=== PATIENT | female | born 1950 | race Caucasian/White ===

== ENCOUNTER 2016-07-30 06:54 | Outpatient (CLI) | payer MEDICARE ==
[~2016-07-30] VITALS: Ht 167.6 cm; Wt 109.1 kg
--- NOTE | ~2016-07-30 | HEMODYNAMI ---
PATIENT:DAMIAN MAGAÑA MEDICAL RECORD: [id number] : 50 LOCATION:[facility] ADMISSION DATE: 07/30/16 Generatedon:07/30/201610:31 Patient name: DAMIAN MAGAÑA Patient #: [id number] SSN: : 1950 Date of study: 07/30/2016 Page: Of Hemodynamic Procedure Report Patient Data Patient Demographics Procedure consent was obtained First Name: DAMIAN Gender: Female Last Name: ARCHANA : 1950 Patient #: [id number] Age: 65 year(s) Race: Unknown Additional ID: [id number] Contact details [address]: [address] [place] [address] State: [place] City: [place] Zip code: [address] Past Medical History Allergies Allergen Reaction Date Comments Reported Other allergy 07/30/2016 codeine Admission Admission Data Admission Date: 07/30/2016 Admission Time: 6:54 Admit Source: Other Lab Results Lab Result Date: 07/30/2016 Lab Result Time: 0:00 Biochemistry Name Units Result Min Max BUN mg/dl 11 --(-*--)-- 7 18 Creatinine mg/dl 0.8 --(-*--)-- 0.6 1.3 CBC Name Units Result Min Max Hematocrit % 46.1 --(-*--)-- 42 54 Hemoglobin g/dl 15.3 --(-*--)-- 13.5 17.5 Procedure Procedure Types Cath Procedure Diagnostic Procedure C [facility] w/Coronaries PCI Procedure Coronary Stent Initial Miscellaneous Procedures Moderate Sedation up to 45 minutes Peripheral Cath Diagnostic Procedure Cath Peripheral Ffgfy-Tkqriam-Bsm-Off Procedure Description Procedure Date Procedure Date: 07/30/2016 Procedure Start Time: 9:57 Procedure End Time: 10:28 Procedure Staff Name Function Juan Dutta MD Performing Physician Gilberto Yost RN Nurse Adilson Jenkins RT Scrub Mounikadalia Lange RT Monitor Procedure Data Cath Procedure Fluoroscopy Diagnostic fluoroscopy Total fluoroscopy Time: 8.4 time: 8.4 min min Diagnostic fluoroscopy Total fluoroscopy dose: dose: 1409 mGy 1409 mGy Contrast Material Contrast Material Type Amount (ml) Isovue 300 205 Entry Location Entry Primary Successful Side Size Upsize Upsize Entry Closure Succes sful Closure Location (Fr) 1 (Fr) 2 (Fr) Remarks Device Remarks Femoral Right 5 Fr 6 Fr Exoseal artery Short Estimated blood loss: 10 ml Diagnostic catheters Device Type Used For End Catheter Placement Cordis 5Fr JL 4.0 Procedure Catheter (MP) Cordis 5Fr 3DRC Catheter Procedure (MP) Cordis 5Fr Pigtail Procedure Catheter (MP) Procedure Complications No complications Procedure Medications Medication Administration Route Dosage Oxygen NC 2 l/min Heparin Flush Bag added to field 2 bags (1000units/500ml NS) 0.9% NaCl I.V. 100 ml/hr Fentanyl I.V. 50 mcg Versed I.V. 1 mg Fentanyl I.V. 50 mcg Versed I.V. 1 mg Fentanyl I.V. 50 mcg Versed I.V. 1 mg Fentanyl I.V. 50 mcg Versed I.V. 1 mg Heparin Bolus I.V. 5000 units Integrilin (Bolus I.V. 9.5 ml 2mg/ml) Integrilin (Bolus wasted 0.5 ml 2mg/ml) Plavix P.O. 600 mg Hemodynamics Rest HGB: 15.3 (g/dl) Heart Rate: 73 (bpm) Pressure Samples Time Site Value (mmHg) Purpose Heart Use Rate(bpm) 10:02 LV 129/1,23 Snapshot 76 10:02 AO 106/59(81) Pullback 71 10:02 LV 113/20,41 Pullback 71 Gradients Valve Time Site 1 Site 2 Mean SEP/DFP Peak To Heart Use (mmHg) (sec/min) Peak Rate (mmHg) (bpm) Aortic 10:02 LV AO 10 19 7 71 113/20,41 106/59(81) Calculations Valve P-P Mean Valve Index Valve Source Name Gradient Area Flow (cm2) Aortic 7 10 7 10 Snapshots Pre Cath Intra NCS Post Cath Vital Signs Time Heart Resp SPO2 NIBP (mmHg) Rhythm Pain Sedation Rate (ipm) (%) Status Level (bpm) 9:43:30 80 20 99 141/84(123) NSR 0 (11) 10(A) , No pain 9:47:42 76 18 100 133/79(115) NSR 0 (11) 10(A) , No pain 9:52:02 75 18 98 112/63(90) NSR 0 (11) 10(A) , No pain 9:56:12 68 18 98 106/59(87) NSR 0 (11) 10(A) , No pain 10:01:01 77 17 99 126/74(106) NSR 0 (11) 10(A) , No pain 10:05:11 79 17 93 106/69(86) NSR 0 (11) 9(A) , No pain 10:09:20 72 18 95 84/49(79) NSR 0 (11) 9(A) , No pain 10:13:26 72 16 96 78/50(70) NSR 0 (11) 9(A) , No pain 10:17:24 84 17 98 92/62(76) NSR 0 (11) 9(A) , No pain 10:21:25 82 17 98 110/67(94) NSR 0 (11) 9(A) , No pain 10:25:33 86 19 99 112/74(91) NSR 0 (11) 10(A) , No pain Medications Time Medication Route Dose Verified Delivered Reason Notes Effectiveness by by 9:45:15 Oxygen NC 2 Gilberto Gilberto Per physician l/min Priyank Yost RN RN 9:45:22 Heparin Flush added 2 Gilberto Gilberto used for Bag to bags Priyank Yost RN procedure (1000units/500ml field RN NS) 9:45:31 0.9% NaCl I.V. 100 Gilberto Gilberto Per physician ml/hr Priyank Yost RN RN 9:57:30 Fentanyl I.V. 50 Gilberto Gilberto for sedation mcg Priyank Yost RN RN 9:57:36 Versed I.V. 1 mg Gilberto Gilberto for sedation Priyank Yost RN RN 9:59:31 Fentanyl I.V. 50 Gilberto Gilberto for sedation mcg Priyank Yost RN RN 9:59:36 Versed I.V. 1 mg Gilberto Gilberto for sedation Priyank Yost RN RN 10:02:29 Fentanyl I.V. 50 Gilberto Gilberto for sedation mcg Priyank Yost RN RN 10:02:34 Versed I.V. 1 mg Gilberto Gilberto for sedation Priyank Yost RN RN 10:06:31 Fentanyl I.V. 50 Gilberto Macias for sedation mcg Priyank Yost RN RN 10:06:35 Versed I.V. 1 mg Gilberto Macias for sedation Priyank Yost RN RN 10:06:47 Heparin Bolus I.V. 5000 Gilberto Macias for units Priyank Yost RN anticoagulation RN 10:07:03 Integrilin I.V. 9.5 Gilberto Macias for (Bolus 2mg/ml) ml Priyank Yost RN antiplatelet RN therapy 10:07:11 Integrilin wasted 0.5 Gilberto Macias for (Bolus 2mg/ml) ml Priyank Yost RN antiplatelet RN therapy 10:29:05 Plavix P.O. 600 Gilberto Macias for mg Priyank Yost RN antiplatelet RN therapy Procedure Log Time Note 9:01:11 Informed consent obtained and on chart 9:01:32 Admit Source: Other 9:01:34 Diagnostic Cath status Elective 9:21:15 Time tracking: Regular hours 9:21:19 Plan of Care:Hemodynamics will remain stable., Cardiac rhythm will remain stable., Comfort level will be maintained., Respiratory function will remain adequate., Patient/ family verbilizes understanding of procedure., Procedure tolerated without complication., Recovers from procedure without complications.. 9:21:24 Mounika Counts RT(R) sent for patient. Start room use. 9:36:13 Patient received from Pre/Post Procedure Room to CCL 2 Alert and oriented. Tansferred to table in Supine position. 9:36:14 Warm blankets applied, and kellie hugger turned on for patient comfort. 9:36:14 Correct patient and procedure confirmed by team. 9:36:15 ECG and BP/O2 sat monitors applied to patient. 9:42:23 Vital chart was started 9:45:15 Oxygen 2 l/min NC was administered by Gilberto Yost RN; Per physician; 9:45:22 Heparin Flush Bag (1000units/500ml NS) 2 bags added to field was administered by Gilberto Yost RN; used for procedure; 9:45:31 0.9% NaCl 100 ml/hr I.V. was administered by Gilberto Yost RN; Per physician; 9:49:42 Rhythm: sinus rhythm 9:49:59 Full Disclosure recording started 9:50:12 Baseline sample Acquired. 9:50:22 H&P Date Dictated: 07/26/2016 Within 30 days and on chart., H&P Addendum completed by physician on day of procedure. (MUST COMPLETE FOR ALL OUTPATIENTS). 9:50:23 Pre-procedure instructions explained to patient. 9:50:23 Pre-op teaching completed and patient verbalized understanding. 9:50:24 Family in waiting room. 9:50:26 Patient NPO since Midnight. 9:50:35 Patient allergic to Other allergycodeine 9:50:38 Is the patient allergic to Iodine/contrast media? No. 9:50:52 Is patient on blood thinner?No 9:50:53 Patient diabetic? Yes. 9:50:55 If diabetic: On Metformin? Yes 9:51:06 If on Metformin: Last Dose? 07/25/2016 9:51:10 Previous problem with sedation/anesthesia? No ? 9:51:12 Snore? Yes 9:51:13 Sleep apnea? No 9:51:14 Deviated septum? No 9:51:15 Opens mouth fully? Yes 9:51:15 Sticks out tongue? Yes 9:51:17 Airway obstruction? No ? 9:51:18 Dentures? No ? 9:51:34 Patient pain scale 0/10 ?. 9:51:37 IV patent on arrival in right hand with 0.9% NaCl at [facility]. 9:52:13 Zero performed for pressure channel P1 9:52:22 Zero performed for pressure channel P1 9:53:14 Lab Result : BUN 11 mg/dl 9:53:14 Lab Result : Creatinine 0.8 mg/dl 9:53:15 Lab Result : Hemoglobin 15.3 g/dl 9:53:15 Lab Result : Hematocrit 46.1 % 9:53:16 Lab results completed and on chart. 9:53:19 Bilateral groins area was prepped with chlora-prep and draped in sterile fashion 9:53:20 Alarms reviewed by R. N. 9:53:20 Sharps counted by scrub and verified by R.N. 9:53:22 Use device set Femoral Dx 9:53:23 Tegaderm 4 x 4 opened to sterile field. 9:53:24 Acist Hand Control opened to sterile field. 9:53:24 Acist Manifold opened to sterile field. 9:53:26 Acist Syringe opened to sterile field. 9:53:26 Bag Decanter opened to sterile field. 9:53:27 Medline Cath Pack opened to sterile field. 9:53:27 Terumo 5Fr Thor Sheath opened to sterile field. 9:53:28 St Robert 260cm J .035 wire opened to sterile field. 9:53:28 Diagnostic Infinity 5Fr Multipack catheter opened to sterile field. 9:53:35 Physician arrived 9:53:36 --------ALL STOP TIME OUT------ 9:53:36 Final Timeout: patient, procedure, and site verified with staff and physician. All members of the team are in agreement. 9:53:38 Bilateral groins site verified by team. 9:53:40 Physical assessment completed. ASA score P 2 - A patient with mild systemic disease as per Juan Dutta MD. 9:53:42 Sedation plan: IV Moderate Sedation Versed, Fentanyl 9:57:27 Procedure started. 9:57:30 Fentanyl 50 mcg I.V. was administered by Gilberto Yost RN; for sedation; 9:57:30 Local anesthetic to right femoral artery with Lidocaine 2% by Juan Dutta MD.INITIAL ACCESS ONLY 9:57:36 Versed 1 mg I.V. was administered by Gilberto Yost RN; for sedation; 9:57:39 A 5 Fr sheath was inserted into the Right Femoral artery 9:58:30 A Cordis 5Fr JL 4.0 Catheter (MP) was advanced over the wire and used for Procedure. 9:59:03 LCA angiography performed. 9:59:31 Fentanyl 50 mcg I.V. was administered by Gilberto Yost RN; for sedation; 9:59:36 Versed 1 mg I.V. was administered by Gilberto Yost RN; for sedation; 9:59:44 Catheter exchanged over wire. 10:00:21 A Cordis 5Fr 3DRC Catheter (MP) was advanced over the wire and used for Procedure. 10:00:47 RCA angiography performed. 10:00:59 Terumo 6Fr Thor Sheath opened to sterile field. 10:00:59 Cordis 6FR XBLAD 3.5 guide catheter opened to sterile field. 10:01:00 Fritz Whisper J 300cm 0.014 guide wire opened to sterile field. 10:01:05 Catheter exchanged over wire. 10:01:10 A Cordis 5Fr Pigtail Catheter (MP) was advanced over the wire and used for Procedure. 10:02:21 EF : 55 % 10::24 Injector settings: Ml/sec: 10, Volume: 20, 10:02:29 Fentanyl 50 mcg I.V. was administered by Gilberto Yost RN; for sedation; 10:02:34 Versed 1 mg I.V. was administered by Gilberto Yost RN; for sedation; 10:02:45 Procedure type changed to Cath procedure, Diagnostic procedure, LHC, LHC w/Coronaries, PCI procedure, Coronary Stent Initial, Miscellaneous Procedures, Moderate Sedation up to 45 minutes, Peripheral Cath Diagnostic Procedure, Cath Peripheral, Cvtzg-Ovenngg-Ejj-Off 10:02:53 Abdominal angiogram w/ runoff was performed. 10:03:43 Left leg runoff performed. 10:04:16 Right leg runoff performed. 10:05:30 Catheter removed. 10:05:39 Sheath upsized to a 6 Fr Short. 10:06:31 Fentanyl 50 mcg I.V. was administered by Gilberto Yost RN; for sedation; 10:06:35 Versed 1 mg I.V. was administered by Gilberto Yost RN; for sedation; 10:06:47 Heparin Bolus 5000 units I.V. was administered by Gilberto Yost RN; for anticoagulation; 10:07:03 Integrilin (Bolus 2mg/ml) 9.5 ml I.V. was administered by Gilberto Yost RN; for antiplatelet therapy; 10:07:11 Integrilin (Bolus 2mg/ml) 0.5 ml wasted was administered by Gilberto Yost RN; for antiplatelet therapy; 10:07:17 6 Fr xblad 3.5 guide catheter was inserted over the wire 10:09:07 whisper wire advanced. 10:11:35 Wire removed. 10:11:40 Guide Catheter removed. unable to get back-up support 10:12:39 Medtronic Launcher 5Fr EBU 3.5 guide catheter opened to sterile field. 10:12:48 6 Fr EBU 3.5 guide catheter was inserted over the wire 10:13:12 WHISPER wire advanced. 10:14:08 Wire advanced across lesion. 10:15:10 Inflation number: 1 A H[employer] [place] 3.0 X 15 balloon was prepped and advanced across the Mid LAD, then inflated to 10 SHAHBAZ for 0:15 (min:sec). 10:15:43 Balloon removed over the wire. 10:18:12 Inflation Number: 2 A Medtronic Resolute 3.0 X 26 stent was prepped and advanced across the Mid LAD. The stent was deployed at 14 SHAHBAZ for 0:26 (min:sec). 10:20:44 Stent catheter was removed intact over wire. 10:22:21 Inflation Number: 1 A Medtronic Resolute 3.5 X 12 stent was prepped and advanced across the Prox LAD. The stent was deployed at 14 SHAHBAZ for 0:10 (min:sec). 10:24:21 Stent catheter was removed intact over wire. 10:24:22 Wire removed. 10:24:22 Guide catheter removed. 10:24:37 Cordis 6Fr Exoseal opened to sterile field. 10:24:54 Sheath removed intact; hemostasis achieved with Exoseal to the Right Femoral artery. 10:24:58 Procedure ended.(Physican Out) 10:25:03 Fluoroscopy time 08.40 minutes. 10:25:09 Fluoroscopy dose: 1409 mGy 10:25:09 Flurop Dose total: 1409 10:25:15 Contrast amount:Isovue 300 205ml. 10:25:16 Sharps counted by scrub and verified by R.N. 10:25:17 Insertion/operative site no bleeding no hematoma. 10:25:20 Post-op/insertion site Right Femoral artery dressed using a 4 x 4 and Tegaderm. 10:25:23 Post right femoral artery:stable, soft, clean and dry 10:25:24 Post Procedure Pulses reassessed and unchanged 10:25:26 Post-procedure physical assessment completed. ASA score P 2 - A patient with mild systemic disease as per Juan Dutta MD. 10:25:29 Post procedure rhythm: unchanged. 10:25:31 Estimated blood loss: 10 ml 10:25:33 Post procedure instruction explained to patient.Patient verbalizes understanding. 10:25:33 Patient needs reinforcement of post procedure teaching. 10:27:16 Merit BasixCompak Inflation Kit opened to sterile field. 10:27:45 Procedure and supply charges have been captured, reviewed, submitted and are correct. 10:27:47 Procedure Complication : No complications 10:27:49 Vital chart was stopped 10:27:49 See physician's report for complete and final results. 10:27:50 Report given to Pre/Post Procedure Room. 10:28:01 Patient transfered to Pre/Post Procedure Room with Stretcher. 10:28:03 Procedure ended. 10:28:03 Full Disclosure recording stopped 10:28:07 End room use (Document Last) 10:29:05 Plavix 600 mg P.O. was administered by Gilberto Yost RN; for antiplatelet therapy; Intervention Summary Intervention Notes Time ActionType Lesion and Equipment Action# Pressure Duration Attributes Used 10:15:10 Inflate Mid LAD Horton 1 10 00:15 balloon Sci [place] 3.0 X 15 balloon 10:18:12 Place stent Mid LAD Medtronic 2 14 00:26 Resolute 3.0 X 26 stent 10:22:21 Place stent Prox LAD Medtronic 1 14 00:10 Resolute 3.5 X 12 stent Device Usage Item Name Manufacture Quantity Catalog Number Hospital Part Current Mini [facility] Lot# / Charge Number Stock Stock Serial# Code Tegade 4 3M 1 [id number] 519970 408102 5 x 4 Acist Hand Acist 1 41293 571729 466083 891827 5 Control [employer] Systems Inc Acist Acist 1 60801 959335 512016 403421 5 Manifold Medical Systems Inc Acist Acist 1 09085 969027 587956 392142 20 Syringe Medical Systems Inc Bag Microtek 1 2002S 892291 87516 116614 5 EGG [employer] Inc. Medline Cardinal 1 [id number] 905934 93586 503703 5 Cath Pack Health Terumo 5Fr Terumo 1 [id number] 156503 133170 870943 [address] Robert 1 052870 011686 488513 468244 30 260cm J .035 wire Diagnostic Cardinal 1 HT4131 899028 30416 323153 30 Infinity Health 5Fr Multipack catheter Cordis 5Fr Cardinal 1 080791 5 JL 4.0 Health Catheter (MP) Cordis 5Fr Cardinal 1 906871 5 3DRC Health Catheter (MP) Terumo 6Fr Terumo 1 [id number] 279077 856796 246510 40 Thor Sheath Cordis 6FR Cardinal 1 [id number] 839607 708805 734663 10 XBLAD 3.5 Health guide catheter Fritz Fritz 1 [id number] 349251 094745 679768 5 Whisper J Vascular 300cm 0.014 guide wire Cordis 5Fr Cardinal 1 791733 5 Pigtail Health Catheter (MP) Medtronic Medtronic 1 [id number] 725843 190223 316354 1 Launcher 5Fr EBU 3.5 guide catheter Horton Sci Horton 1 [id number] 369553 273343 797964 1 [id number] [employer] 3.0 X 15 balloon Medtronic Medtronic 1 [id number] 418726 158054 3 [id number] Resolute 3.0 X 26 stent Medtronic Medtronic 1 [id number] 374334 978026 1 [id number] Resolute 3.5 X 12 stent Cordis 6Fr Cardinal 1 [id number] 261189 220746 484737 10 [facility] 1 [id number] 796470 924710 041643 15 [facility] Medical Inflation Kit Signature Audit Moffit Stage Time Signature Unsigned Intra-Procedure 07/30/2016 Adilson Jenkins 10:31:04 AM RT(R) Signatures Monitor : Mounika Signature : Counts RT Date : Time : [place] [id number] [facility] [place] [address]
[2016-07-30] MEDS ORDERED: LOSARTAN POTASS25 MG PO (07:59)
[2016-07-30] MEDS ORDERED: GLUCOPHAGE1000 MG PO (07:59)
[2016-07-30] MEDS ORDERED: ZOCOR20 MG PO (08:00)
[2016-07-30] MEDS ORDERED: MELOXICAM TAB 15M PO (08:01)
[2016-07-30] MEDS ORDERED: GLYBURIDE2.5 MG PO (08:02)
[2016-07-30 08:08] LABS: BASOPHILS 0.3 % (0-2); EOSINOPHILS 1.7 % (0-7); HEMATOCRIT 46.1 % (36.0-48.0); HEMOGLOBIN 15.3 g/dL (12-16); IMMATURE GRANULOCYTES 0.2 % (0-5); LYMPHOCYTES 31.1 % (15-50); MCH 31.6 pg (26.0-34.0); MCHC 33.2 g/dL (31.0-37.0); MCV 95.2 fL (80.0-100.0); MEAN PLATELET VOLUME 10.1 fL (7.4-10.4); MONOCYTES 7.1 % (2-11); NEUTROPHILS 59.6 % (40-80); PLATELET COUNT 212 10x3/uL (130-400); RBC 4.84 10x6/uL (4.00-5.40); WBC 9.1 10x3/uL (4.8-10.8)
[2016-07-30 08:10] VITALS: BP 148/69; Ht 167.6 cm; Wt 109.1 kg
[2016-07-30 08:21] LABS: CALC OSMOLALITY 281 mosm/kg (275-300); CALCIUM 8.9 mg/dL (8.5-10.1); CARBON DIOXIDE 22.2 mmol/L (21.0-32.0); CHLORIDE - SERUM 106 mmol/L (98-107); CREATININE - SERUM 0.8 mg/dL (0.6-1.3); GLUCOSE 173 mg/dL (74-106); SODIUM 140 mmol/L (136-145); UREA NITROGEN 11 mg/dL (7-18); eGFR NON AFRICAN AMERICAN 76 mL/min (90-120)
--- NOTE | 2016-07-30 10:47 | NUR ---
NSR RATE 78 WITH CHEST PAIN DENIED BP 139/73 NO DISTRESS NOTED. 6 FR EXOSEAL R/GROIN CDI NO BLEEDING NO HEMATOMA NOTED. INSTRUCTED PATIENT TO KEEP HEAD FLAT ON PILLOW WITH RLE STRAIGHT. FAMILY AT SIDE
[2016-07-30] MEDS ORDERED: PLAVIX75 MG PO (10:52)
[2016-07-30] MEDS ORDERED: BAYER CHEWABLE81 MG PO (10:53)
--- NOTE | 2016-07-30 11:03 | NUR ---
1100 SANDWICH AND PO FLUIDS SERVED. DRESSING TO RIGHT GROIN IS CDI, NO BLEEDING OR HEMATOMA NOTED. PEDAL PULSES PALPABLE. MONITOR WITH NSR, RATE 79. PT DENIES CHEST PAIN. FAMILY AT BEDSIDE, CALL LIGHT IN REACH.
--- NOTE | 2016-07-30 11:52 | NUR ---
1145 PT DENIES ANY C/O. DRESSING TO RIGHT GROIN IS CDI, NO BLEEDING OR HEMATOMA NOTED. PEDAL PULSES PALPABLE. VSS, SINUS RHYTHM, RATE 80. CONTINUE TO MONITOR.
--- NOTE | 2016-07-30 12:27 | NUR ---
1215 PT DENIES ANY C/O. DRESSING TO RIGHT GROIN IS CDI, NO BLEEDING OR HEMATOMA NOTED. PEDAL PULSES PALPABLE. CALL LIGHT IN REACH.
--- NOTE | 2016-07-30 12:58 | NUR ---
1245 PT DENIES ANY C/O. DRESSING TO RIGHT GROIN IS CDI, AREA IS SOFT AND NONTENDER. PEDAL PULSES PALPABLE. VSS, SINUS RHYTHM, RATE 80.
--- NOTE | 2016-07-30 13:25 | NUR ---
1320 PT VOIDED QS USING BEDPAN, RIGHT GROIN DRESSING REMAINS CDI, NO BLEEDING OR HEMATOMA AT SITE. PEDAL PULSES PALPABLE. FAMILY AT BEDSIDE.
--- NOTE | 2016-07-30 14:44 | NUR ---
1415 IV DC'D WITH CATH INTACT. 1425 PT AMBULATED TO THE BATHROOM, VOIDED QS. DENIES ANY C/O. DRESSING TO RIGHT GROIN IS CDI, NO BLEEDING OR HEMATOMA NOTED. 1440 REVIEWED DC INSTRUCTIONS WITH PT AND FAMILY WHO VERBALIZE UNDERSTANDING. PT ESCORTED TO PRIVATE AUTO VIA WC BY STAFF WITH FAMILY DRIVING HER HOME.
--- NOTE | 2016-08-01 14:39 | OP ---
PATIENT NAME: DAMIAN MAGAÑA MEDICAL RECORD: [id number] :50 LOCATION:D.CAT ADMISSION DATE: SURGEON: AIDEN HATHAWAY MD DATE OF OPERATION: 07/30/2016 Cath, AFRO, PTCA Report PROCEDURES: Left heart catheterization, selective coronary angiography, right femoral artery approach. CATHETERS: A 5-Setswana sheath, 5/4 left and right Rashawn, 5/4 pig. The procedure was well tolerated and proceeded to stenting. FINDINGS: Left ventriculography in 30-degree LOPEZ view: Normal wall motion, normal systolic function. CORONARY ANATOMY: LEFT MAIN: Left main is free of disease. LAD: Has a basically subtotal 90% plus stenosis in its mid portion. Before the take-off of the first diagonal is an 80% stenosis best seen in the LOPEZ cranial view. CIRCUMFLEX: Free of disease. RIGHT CORONARY ARTERY: Dominant artery, gives rise to PDA, free of disease. AFRO: The pigtail catheter was placed above the renal and abdominal and aortography was performed. This showed no significant renal artery stenosis. No evidence of abdominal aortic aneurysm or dissection. LEFT SYSTEM: Left iliac system is free of disease. Left deep femoral is free of disease. Left superficial femoral shows a discrete stenosis of 90% plus with good 3-vessel runoff distally. RIGHT SYSTEM: Right iliac system is free of disease. Right deep femoral system is free of disease. Right superficial femoral shows a more diffuse 80% stenosis, but with good 3-vessel runoff distally. PLAN: Intervention of the LAD with lower extremity intervention at a later date. DESCRIPTION OF PROCEDURE: A 5-Setswana sheath was changed for a 6-Setswana sheath. EBU guiding catheter provided excellent guide catheter support followed by 300 cm Whisper wire was placed across the occluded LAD down to a portion of this vessel. Predeployment balloon used was a 3.0 x 15 mm [place]. Stents were placed in the following fashion. A 3.0 x 26 mm Resolute drug-eluting stent was placed in the mid portion of the vessel and now, approximately a 3.5 x 12 mm Resolute drug-eluting stent was inflated up to 14 atmospheres to proximal lesion. Final injection shows excellent resolution of 80% proximal stenosis, no significant residual; excellent resolution of 90% distal stenosis, no significant residual. NIDHI flow was 3 throughout the procedure. Integrilin was used in the case. Plavix was loaded in the lab. Sheath was closed with ExoSeal device. OPERATIVE REPORT [id number] DAMIAN MAGAÑA TRANSINT:[id number] Voice Confirmation ID: [id number] DOCUMENT ID: [id number] AIDEN HATHAWAY MD at 1439 CC: [id number] DICTATION DATE: 07/30/16 1030 SECONDARY SET UP MAN: 07/30/162003 DEP CLI 07/30/16 [id number] [place] [address]
== END 2016-07-30 14:40 | disposition home or self-care (01) ==
LOC: D.CATH 06:54
PROVIDERS: Internal Medicine Interventional Cardiology
DX: I25.10 Atherosclerotic heart disease of native coronary artery without angina pectoris (principal); I70.203 Unspecified atherosclerosis of native arteries of extremities, bilateral legs
CPT/HCPCS: 93458; C9600

== ENCOUNTER 2016-08-07 10:10 | Outpatient (CLI) | payer MEDICARE ==
[~2016-08-07] VITALS: Ht 167.6 cm; Wt 109.1 kg
--- NOTE | ~2016-08-07 | HEMODYNAMI ---
PATIENT:DAMIAN MAGAÑA MEDICAL RECORD: [id number] : 50 LOCATION:[facility] ADMISSION DATE: 08/07/16 Generatedon:08/07/201615:24 Patient name: DAMIAN MAGAÑA Patient #: [id number] SSN: : 1950 Date of study: 08/07/2016 Page: Of Hemodynamic Procedure Report Patient Data Patient Demographics Procedure consent was obtained First Name: DAMIAN Gender: Female Last Name: ARCHANA : 1950 Patient #: [id number] Age: 65 year(s) Race: Unknown Additional ID: [id number] Contact details [address]: [address] [place] [address] State: [place] City: [place] Zip code: [address] Past Medical History Allergies Allergen Reaction Date Comments Reported Other allergy 07/30/2016 codeine Other allergy 08/07/2016 Codeine, Sulfa Admission Admission Data Admission Date: 08/07/2016 Admission Time: 10:10 Lab Results Lab Result Date: 08/07/2016 Lab Result Time: 10:50 Biochemistry Name Units Result Min Max BUN mg/dl 11 --(-*--)-- 7 18 Creatinine mg/dl 0.9 --(-*--)-- 0.6 1.3 CBC Name Units Result Min Max Hematocrit % 47 --(-*--)-- 42 54 Hemoglobin g/dl 15.5 --(-*--)-- 13.5 17.5 Procedure Procedure Types Cath Procedure Miscellaneous Procedures Moderate Sedation up to 30 minutes Peripheral vascular Intervention Stent Stent-Fem/Popw/plasty Procedure Description Procedure Date Procedure Date: 08/07/2016 Procedure Start Time: 14:57 Procedure End Time: 15:22 Procedure Staff Name Function Juan Dutta MD Performing Physician Elena Jenkins RT Monitor Elmer Seymour RT Scrub Heather Clark RN Production Supv Shan Franco RT Monitor Procedure Data Cath Procedure Fluoroscopy Diagnostic fluoroscopy Total fluoroscopy Time: 6.2 time: 6.2 min min Diagnostic fluoroscopy Total fluoroscopy dose: 154 dose: 154 mGy mGy Contrast Material Contrast Material Type Amount (ml) Isovue 300 28 Entry Location Entry Primary Successful Side Size Upsize 1 Upsize Entry Closure Wilkins ccessful Closure Location (Fr) (Fr) 2 (Fr) Remarks Device Remarks Femoral Right 6 Fr 6 Fr 6 Fr Exoseal artery Short Mid-Length Short Estimated blood loss: 10 ml Diagnostic catheters Device Type Used For End Catheter Placement Diagnostic 5Fr IMT Procedure Catheter Procedure Medications Medication Administration Route Dosage Oxygen NC 2 l/min Heparin Flush Bag added to field 2 bags (1000units/500ml NS) Lidocaine 2% added to field 20 Versed I.V. 1 mg Fentanyl I.V. 50 mcg Versed I.V. 1 mg Fentanyl I.V. 50 mcg Heparin Bolus I.V. 5000 units Versed I.V. 1 mg Fentanyl I.V. 50 mcg Versed I.V. 1 mg Fentanyl I.V. 50 mcg Hemodynamics Rest HGB: 15.5 (g/dl) Heart Rate: 79 (bpm) Snapshots Pre Cath Intra NCS Post Cath Vital Signs Time Heart Resp SPO2 etCO2 IP4kiex NIBP (mmHg) Rhythm Pain Sedation Rate (ipm) (%) (mmHg) (mmHg) Status Level (bpm) 14:42:58 79 18 99 0 0 No Cuff NSR 0 (11) 10(A) , No pain 14:46:04 78 16 100 0 0 153/84(117) NSR 0 (11) 10(A) , No pain 14:50:24 78 16 99 0 0 133/77(110) NSR 0 (11) 10(A) , No pain 14:54:42 75 15 96 0 0 125/67(92) NSR 0 (11) 10(A) , No pain 14:58:52 75 19 96 0 0 115/76(91) NSR 0 (11) 9(A) , No pain 15:03:06 89 18 97 0 0 125/75(108) NSR 0 (11) 9(A) , No pain 15:07:18 78 15 96 0 0 106/59(87) NSR 0 (11) 9(A) , No pain 15:11:34 72 20 98 0 0 98/52(79) NSR 0 (11) 9(A) , No pain 15:15:44 89 16 96 0 0 107/61(78) NSR 0 (11) 10(A) , No pain 15:18:55 86 16 98 0 0 122/70(95) NSR 0 (11) 10(A) , No pain 15:23:13 86 10 0 0 117/65(108) NSR 0 (11) 10(A) , No pain Medications Time Medication Route Dose Verified Delivered Reason Notes Effectiveness by by 14:46:03 Oxygen NC 2 Juan Elena Per physician l/min St. Aleksander Mejia RN, MD 14:46:11 Heparin Flush added 2 Juan Juan used for Bag to bags [facility] procedure (1000units/500ml field MD MAI NS) 14:46:19 Lidocaine 2% added 20ml Juan Juan used for to [facility] field MD MAI 14:54:49 Versed I.V. 1 mg Juan Elena for sedation St. Aleksander Mejia RN, MD 14:54:55 Fentanyl I.V. 50 Juan Elena for sedation mcg St. Aleksander Mejia RN, MD 14:56:31 Versed I.V. 1 mg Juan Elena for sedation St. Aleksander Mejia RN, MD 14:56:41 Fentanyl I.V. 50 Juan Elena for sedation mcg St. Aleksander Mejia RN, MD 14:57:49 Heparin Bolus I.V. 5000 Juan Elena for dose units St. Aleksander Mejia RN anticoagulation verified MD with dr salazar 14:58:40 Versed I.V. 1 mg Juan Elena for sedation St. Aleksander Mejia RN, MD 14:58:47 Fentanyl I.V. 50 Juan Elena for sedation mcg St. Aleksander Mejia RN, MD 15:01:20 Versed I.V. 1 mg Juan Elena for sedation St. Aleksander Mejia RN, MD 15:01:38 Fentanyl I.V. 50 Juan Elena for sedation mcg St. Aleksander Mejia RN, MD Procedure Log Time Note 14:20:16 Heather Clark RN sent for patient. Start room use. 14:29:17 Time tracking: Regular hours 14:29:22 Plan of Care:Hemodynamics will remain stable., Cardiac rhythm will remain stable., Comfort level will be maintained., Respiratory function will remain adequate., Patient/ family verbilizes understanding of procedure., Procedure tolerated without complication.. 14:37:30 Patient received from Pre/Post Procedure Room to CCL 1 Alert and oriented. Tansferred to table in Supine position. 14:37:31 Warm blankets applied, and kellie hugger turned on for patient comfort. 14:37:32 Correct patient and procedure confirmed by team. 14:37:33 Signed procedure consent form obtained from patient. 14:37:33 ECG and BP/O2 sat monitors applied to patient. 14:42:08 Vital chart was started 14:46:03 Oxygen 2 l/min NC was administered by Elena Mejia RN; Per physician; 14:46:11 Heparin Flush Bag (1000units/500ml NS) 2 bags added to field was administered by Juan Dutta MD; used for procedure; 14:46:19 Lidocaine 2% 20ml vial added to field was administered by Juan Dutta MD; used for procedure; 14:48:15 Baseline sample Acquired. 14:48:20 Rhythm: sinus rhythm 14:48:35 H&P Date Dictated: 07/26/2016 Within 30 days and on chart., H&P Addendum completed by physician on day of procedure. (MUST COMPLETE FOR ALL OUTPATIENTS). 14:48:37 Pre-procedure instructions explained to patient. 14:48:37 Pre-op teaching completed and patient verbalized understanding. 14:48:39 Family in waiting room. 14:48:41 Patient NPO since Midnight. 14:48:56 Patient allergic to Other allergyCodeine, Sulfa 14:48:58 Is the patient allergic to Iodine/contrast media? No. 14:49:00 Is patient on blood thinner?Yes 14:49:02 ACC The patient was administered the following blood thiners within the last 24 hours: ACCPlavix 14:49:03 Patient diabetic? Yes. 14:49:04 If diabetic: On Metformin? Yes 14:49:08 If on Metformin: Last Dose? 07/25/2016 14:49:11 Previous problem with sedation/anesthesia? No ? 14:49:12 Snore? Yes 14:49:13 Sleep apnea? No 14:49:14 Deviated septum? No 14:49:15 Opens mouth fully? Yes 14:49:16 Sticks out tongue? Yes 14:49:17 Airway obstruction? No ? 14:49:19 Dentures? No ? 14:49:23 Pre procedure: right dorsailis pedis pulse 1+ Palpable, but thready & weak; easily obliterated 14:49:25 Patient pain scale 0/10 ?. 14:49:32 IV patent on arrival in right antecubital with 0.9% NaCl at [facility]. 14:50:25 Lab Result : BUN 11 mg/dl 14:50:25 Lab Result : Creatinine 0.9 mg/dl 14:50:25 Lab Result : Hemoglobin 15.5 g/dl 14:50:25 Lab Result : Hematocrit 47 % 14:50:29 Lab results completed and on chart. 14:50:30 Right groin area was prepped with chlora-prep and draped in sterile fashion 14:50:35 Alarms reviewed by R. N. 14:50:35 Sharps counted by scrub and verified by R.N. 14:50:42 Use device set Femoral PCI 14:50:44 Tegaderm 4 x 4 opened to sterile field. 14:50:45 Acist Syringe opened to sterile field. 14:50:46 Acist Hand Control opened to sterile field. 14:50:46 Bag Decanter opened to sterile field. 14:50:47 Medline Cath Pack opened to sterile field. 14:50:48 Terumo 6Fr [place] Sheath opened to sterile field. 14:50:49 St Robert 260cm J .035 wire opened to sterile field. 14:50:49 Merit BasixCompak Inflation Kit opened to sterile field. 14:50:50 Acist Manifold opened to sterile field. 14:51:07 Terumo 6Fr [place] Destination Sheath opened to sterile field. 14:51:29 Terumo Super Stiff Angled 260cm glide wire opened to sterile field. 14:51:39 Terumo TORQUE DEVICE PLASTIC .038 opened to sterile field. 14:54:18 Physician arrived 14:54:18 --------ALL STOP TIME OUT------ 14:54:18 Final Timeout: patient, procedure, and site verified with staff and physician. All members of the team are in agreement. 14:54:20 Right groin site verified by team. 14:54:23 Physical assessment completed. ASA score P 2 - A patient with mild systemic disease as per Juan Dutta MD. 14:54:25 Sedation plan: IV Moderate Sedation Versed, Fentanyl 14:54:49 Versed 1 mg I.V. was administered by Elena Mejia RN; for sedation; 14:54:55 Fentanyl 50 mcg I.V. was administered by Elena Mejia RN; for sedation; 14:56:31 Versed 1 mg I.V. was administered by Elena Mejia RN; for sedation; 14:56:41 Fentanyl 50 mcg I.V. was administered by Elena Mejia RN; for sedation; 14:57:48 Procedure started. 14:57:48 Full Disclosure recording started 14:57:49 Heparin Bolus 5000 units I.V. was administered by Elena Mejia RN; for anticoagulation; dose verified with dr salazar 14:57:51 Local anesthetic to right femoral artery with Lidocaine 2% by Juan Dutta MD.INITIAL ACCESS ONLY 14:58:03 A 6 Fr Short sheath was inserted into the Right Femoral artery 14:58:21 A Diagnostic 5Fr IMT Catheter was advanced over the wire and used for Procedure. 14:58:40 Versed 1 mg I.V. was administered by Elena Mejia RN; for sedation; 14:58:47 Fentanyl 50 mcg I.V. was administered by Elena Mejia RN; for sedation; 14:59:13 Zero performed for pressure channel P1 14:59:43 glide wire wire advanced around the horn. 15:00:00 Wire advanced across lesion. 15:01:19 Catheter removed. 15:01:20 Versed 1 mg I.V. was administered by Elena Mejia RN; for sedation; 15:01:30 Sheath upsized to a 6 Fr Mid-Length. 15:01:38 Fentanyl 50 mcg I.V. was administered by Elena Mejia RN; for sedation; 15:03:01 Left leg runoff performed. 15:05:41 Cordis SMART 6 X 20 X 120 stent was deployed across Mid Superficial Femoral, Left . 15:06:59 Stent catheter was removed intact over wire. 15:09:12 Inflation number: 1 A Cordis Powerflex Pro 6.0 X 20 X 135 balloon was prepped and advanced across the Mid Superficial Femoral, Left, then inflated to 6 SHAHBAZ for 0:10 (min:sec). 15:09:46 Balloon removed over the wire. 15:12:16 Cordis SMART 6 X 20 X 120 stent was deployed across Mid Superficial Femoral, Left . 15:14:20 Inflation number: 2 The Cordis Powerflex Pro 6.0 X 20 X 135 balloon was reinflated across the Mid Superficial Femoral, Left, to 8 SHAHBAZ for 0:24 (min:sec). 15:14:27 Balloon removed over the wire. 15:15:16 Wire removed. 15:15:25 Sheath upsized to a 6 Fr Short. 15:15:33 Cordis 6Fr Exoseal opened to sterile field. 15:16:02 Sheath removed intact; hemostasis achieved with Exoseal to the Right Femoral artery. 15:16:04 Procedure ended.(Physican Out) 15:17:00 Fluoroscopy time 06.20 minutes. 15:17:03 Fluoroscopy dose: 154 mGy 15:17:03 Flurop Dose total: 154 15:17:06 Contrast amount:Isovue 300 28ml. 15:17:08 Sharps counted by scrub and verified by R.N. 15:17:09 Insertion/operative site no bleeding no hematoma. 15:17:13 Post-op/insertion site Right Femoral artery dressed using a 4 x 4 and Tegaderm. 15:17:17 Post right femoral artery:stable, soft, clean and dry 15:17:22 Post Procedure Pulses reassessed and unchanged 15:17:26 Post-procedure physical assessment completed. ASA score P 2 - A patient with mild systemic disease as per Juan Dutta MD. 15:17:28 Post procedure rhythm: unchanged. 15:17:31 Estimated blood loss: 10 ml 15:17:33 Post procedure instruction explained to patient.Patient verbalizes understanding. 15:17:33 Patient needs reinforcement of post procedure teaching. 15:18:59 Procedure type changed to Cath procedure, Miscellaneous Procedures, Moderate Sedation up to 30 minutes, Peripheral vascular Intervention, Stent, Stent-Fem/Popw/plasty 15:22:19 Vital chart was stopped 15:22:20 See physician's report for complete and final results. 15:22:41 Report given to Pre/Post Procedure Room. 15:22:47 Patient transfered to Pre/Post Procedure Room with Stretcher. 15:22:51 Procedure ended. 15:22:51 Full Disclosure recording stopped 15:23:02 End room use (Document Last) Intervention Summary Intervention Notes Time ActionType Lesion and Equipment Action# Pressure Duration Attributes Used 15:05:41 Deploy self Mid Cordis 1 expanding Superficial SMART 6 X stent Femoral, 20 X 120 Left stent 15:09:12 Inflate Mid Cordis 1 6 00:10 balloon Superficial Powerflex Femoral, Pro 6.0 X Left 20 X 135 balloon 15:12:16 Deploy self Mid Cordis 1 expanding Superficial SMART 6 X stent Femoral, 20 X 120 Left stent 15:14:20 Reinflate Mid Cordis 2 8 00:24 balloon Superficial Powerflex Femoral, Pro 6.0 X Left 20 X 135 balloon Device Usage Item Name Manufacture Quantity Catalog Number Hospital Part Current Minim al Lot# / Charge Number Stock Stock Serial# Code Tegaderm 4 3M 1 [id number] 983234 136458 5 x 4 Acist Acist 1 37038 166420 838205 173462 20 Syringe Medical Systems Inc Acist Hand Acist 1 16296 303805 440130 434454 5 Control Medical Systems Inc Bag Microtek 1 2002S 116170 51970 837900 5 Decanter Medical Inc. Medline Cardinal 1 [id number] [id number] 17539 837720 5 Cath Pack Health Terumo 6Fr Terumo 1 SHF031 851329 043103 568316 [address] Robert 1 857634 479111 805451 996615 30 260cm J .035 wire Merit Merit 1 [id number] 610335 964874 168943 15 RICS [facility] Campus[facility] Medical Inflation Kit Acist Acist 1 77774 572876 047564 295024 5 Manifold Medical Systems Inc Terumo 6Fr Terumo 1 RSR01 487084 96474 107908 5 [place] Destination Sheath Terumo Terumo 1 IY7199 491829 507084 939891 5 Super Stiff Angled 260cm glide wire Terumo Delavan 1 TD01 698114 854842 141794 5 TORQUE Scientific DEVICE PLASTIC .038 Diagnostic Delavan 1 [id number] 392907 714575 25244 5 5Fr IMT Scientific Catheter Cordis Cardinal 2 [id number] 445840 957028 0 [id number] SMART 6 X Health [id number] 20 X 120 stent Cordis Cardinal 1 [id number] 094046 735807 681892 5 Powerblinkbox music Health Pro 6.0 X 20 X 135 balloon Cordis 6Fr Cardinal 1 EX600 925240 244997 215721 10 Exoseal Health Signature Audit [place] Stage Time Signature Unsigned Intra-Procedure 08/07/2016 Shan Franco 3:23:57 PM RT(R) (CV) Signatures Monitor : Adilson Jenkins RT Signature : Date : Time : Monitor : Shan Franco RT Signature : Date : Time : [place] [id number] [place] [address]
[~2016-08-07 10:10] MED LIST: BAYER CHEWABLE81 MG PO; GLUCOPHAGE1000 MG PO; GLYBURIDE2.5 MG PO; LOSARTAN POTASS25 MG PO; MELOXICAM TAB 15M PO; PLAVIX75 MG PO; ZOCOR20 MG PO
[2016-08-07 10:34] VITALS: BP 162/84; Ht 167.6 cm; Wt 109.1 kg
[2016-08-07 11:02] LABS: BASOPHILS 0.2 % (0-2); EOSINOPHILS 1.3 % (0-7); HEMOGLOBIN 15.5 g/dL (12-16); IMMATURE GRANULOCYTES 0.3 % (0-5); LYMPHOCYTES 36.9 % (15-50); MCH 31.4 pg (26.0-34.0); MCV 95.1 fL (80.0-100.0); MEAN PLATELET VOLUME 9.9 fL (7.4-10.4); MONOCYTES 5.6 % (2-11); NEUTROPHILS 55.7 % (40-80); PLATELET COUNT 242 10x3/uL (130-400); RBC 4.94 10x6/uL (4.00-5.40); RDW 14.2 % (11.5-14.5)
[2016-08-07 11:14] LABS: ANION GAP 15.4 mmol/L (8-16); CALCIUM 9.1 mg/dL (8.5-10.1); CARBON DIOXIDE 24.6 mmol/L (21.0-32.0); CREATININE - SERUM 0.9 mg/dL (0.6-1.3)
--- NOTE | 2016-08-07 15:42 | NUR ---
RIGHT GROIN CDI, NO HEMATOMA OR BLEEDING NOTED
--- NOTE | 2016-08-07 16:15 | NUR ---
RESTING, RIGHT GROIN CDI, NO HEMATOMA OR BLEEDING
--- NOTE | 2016-08-09 12:53 | OP ---
PATIENT NAME: DAMIAN MAGAÑA MEDICAL RECORD: [id number] :50 LOCATION:D.[facility] ADMISSION DATE: SURGEON: AIDEN HATHAWAY MD DATE OF OPERATION: 08/07/2016 PTCA Stent of the Left SFA After a 6-Thai sheath was placed in the right femoral artery using an ALANIS catheter, we went around the horn. A Glidewire was placed across the 80% to 90% stenosed left SFA down a portion of the vessel into the posterior tibial. Next, predeployment balloon used was a 6.0 x 20 mm balloon. A two 6.0 x 20 mm SMART stents were then deployed. Next, post-deployment we used the same 6.0 x 20 mm balloon up to 8 atmospheres. Following this, shows excellent resolution of 80% stenosis, no significant residual. Brisk 3-vessel runoff was noted. The patient was previously on Plavix. Heparin was used. Sheath closed with ExoSeal device. TRANSINT:[id number] Voice Confirmation ID: [id number] DOCUMENT ID: [id number] AIDEN HATHAWAY MD at 1253 CC: [id number] DICTATION DATE: 08/07/16 1521 RESIDENTIAL SALES ASSOCIATE: 08/08/16 0121 DEP CLI 08/07/16 [facility] [address] [place] [address]
== END 2016-08-07 19:30 | disposition home or self-care (01) ==
LOC: D.CATH 10:10
PROVIDERS: Internal Medicine Interventional Cardiology
DX: I70.212 Atherosclerosis of native arteries of extremities with intermittent claudication, left leg (principal); R07.9 Chest pain, unspecified; I10 Essential (primary) hypertension; I20.9 Angina pectoris, unspecified; E11.9 Type 2 diabetes mellitus without complications; F17.200 Nicotine dependence, unspecified, uncomplicated

== ENCOUNTER → 2019-07-06 08:52 | Outpatient (CLI) | payer MEDICARE ==
[2016-08-07 10:34] VITALS: BMI 38.8
--- NOTE | 2019-07-07 08:24 | EC ---
PATIENT:DAMIAN MAGAÑA DATE OF SERVICE: 07/06/19 SEX: F MEDICAL RECORD: [id number] DATE OF : 50 LOCATION:D[facility] AGE OF PATIENT: 68 ADMISSION DATE: 07/06/19 REFERRING PHYSICIAN: INTERPRETING PHYSICIAN: AIDEN HATHAWAY MD ECHOCARDIOGRAM REPORT ECHO CHARGES 4 ECHO COMPLETE Date: 07/06/19 CLINICAL DIAGNOSIS: H/O CAD/PVD/HTN ECHOCARDIOGRAPHIC MEASUREMENTS (adult normal given) AC root (d.<3.7cm) 2.9 cm LV Septum d (<1.2 cm> 1.0 cm Valve Excursion 1.4 cm LV Septum (systole) 1.2 cm Left Atria (s.<4.0cm> 3.2 cm LVPW d(<1.2cm) 1.0 cm RV (d.<2.3cm) 2.3 cm LVPW (sytole) 1.4 cm LV diastole(<5.6CM) 4.9 cm MV E-F(>70mm/sec) cm LV systole 3.8 cm LVOT Diameter 1.8 cm MV exc.(>10mm) cm Est.ejection fraction (50-75%) % DOPPLER: LVIT cm/sec A 119 cm/sec E 70.0 cm/sec LA cm/sec RVSP 23.1 mmHg LVOT 151 cm/sec AOP1/2T m/s Asc. 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 Dutta TAPE# PACS Pericardial Effusion Y DATE OF SERVICE: Adequate 2D, color flow imaging, spectral Doppler, and M-Mode No LVH. LV internal dimension is normal. Wall motion is normal. EF is greater than or equal to 60%. Aortic valve is sclerotic with mildly elevated velocities, peak gradient of 35 mmHg putting this in the mild to moderate range. Left atrium is normal at 3.2 cm. Mitral valve shows no prolapse. Trace MR. Right-sided chambers are grossly normal. Trace TR. ECHOCARDIOGRAM REPORT [id number] DAMIAN MAGAÑA TRANSINT:[id number] Voice Confirmation ID: [id number] DOCUMENT ID: [id number] AIDEN HATHAWAY MD at 0824 CC: [id number] DICTATION DATE: 07/06/191456 MANAGER GALLERY: 07/06/192136 DEP CLI 07/06/19 [place] [id number] [place] [id number]
== END | disposition home or self-care (01) ==
LOC: D.HCCECHO 08:52
PROVIDERS: ATTEND Internal Medicine Interventional Cardiology
DX: I10 Essential (primary) hypertension (principal)